=== PATIENT | female | born 1975 | race Caucasian/White ===

== ENCOUNTER 2021-03-06 13:43 | Emergency (ER) | payer MEDICAID, OTHER | END 2021-03-06 14:31 | disposition left against medical advice (07) | LOC: ER 13:43 | DX: R21 Rash and other nonspecific skin eruption (principal); Z53.21 Procedure and treatment not carried out due to patient leaving prior to being seen by health care provider ==

== ENCOUNTER 2021-10-02 00:34 | Observation (INO) | payer OTHER ==
[~2021-10-02] VITALS: Ht 167.6 cm; Wt 72.1 kg
--- NOTE | 2021-10-02 00:39 | PHYS DOC ---
General Adult EDM: Chief Complaint: SEIZURE HPI: HPI: Patient is a 46 year old female brought in by EMS from home for reported multiple seizures today. Per the patient's significant other, he reportedly witnessed at least 7 seizures, with progressively prolonged postictal states. The patient is postictal for EMS on their arrival. No seizure activity was reported in route, though shortly after arrival, she does manifest evidence of tonic-clonic activity. The patient reportedly has a history of epilepsy. EMS reports that one of her medications is Depakote. The patient significant other is not here, and the number listed for him in the computer is not working, so I am inapplicable to procure any information from him. The patient is altered in mental status, is postictal, and I am unable to obtain any information from her directly either. She is afebrile here. No reported known history of vomiting or falls. Unsure about medication compliance. Review of Systems: Review of Systems: Seizures and postictal state, altered mental status. Otherwise review of systems is unobtainable secondary to patient's clinical condition. Heart Score: C/O Chest Pain: N/A Risk Factors: Risk Factors: DM, Current or recent (<one month) smoker, HTN, HLP, family history of CAD, obesity. Risk Scores: Score 0 - 3: 2.5% MACE over next 6 weeks - Discharge Home Score 4 - 6: 20.3% MACE over next 6 weeks - Admit for Clinical Observation Score 7 - 10: 72.7% MACE over next 6 weeks - Early Invasive Strategies Current Medications: Current Medications Medications (Trade) Dose Ordered Sig/Jeri Start Time Stop Time Status Last Admin Dose Admin Lorazepam (Ativan Inj) 2 mg STK-MED ONCE 10/02/21 00:36 10/02/21 00:37 DC Physical Exam: PE: Constitutional: Well developed, well nourished, no acute distress, non-toxic appearance. [] HENT: Normocephalic, atraumatic, oropharynx is patent and clear, mucous membranes are moist. Small tongue wound, with no brisk or active bleeding. Very poor dentition. Multiple broken teeth. TMs are clear bilaterally. Nares are patent. Eyes: PERRL, no scleral icterus, conjunctive are noninjected, no matting Neck: Trachea is midline. No obvious deformity, no palpable step-offs. No apparent elicited tenderness. No meningismus Cardiovascular: Tachycardic, regular, +2 radial and +2 posterior tibial pulses bilaterally. Lungs & Thorax: Equal chest rise, lungs are clear to auscultation bilaterall, respirations are nonlabored and spontaneous. Lungs are clear without rales, rhonchi or wheezes. Abdomen: Abdomen is soft, nondistended, no fluid wave or obvious ascites. No apparent tenderness. Normal bowel sounds were noted Skin: Warm, dry, no erythema, no rash. [] Back: No obvious back deformity, no obvious palpable tenderness Extremities: No limb deformity, no obvious limb tenderness. No peripheral edema. Pelvis is stable. Neurologic: She is sleeping, she is not awake or alert, gag reflex is intact, she does localize to pain. She is unable to follow commands. No verbal response. She does not open her eyes to voice. She mumbles minimally. She does makes incomprehensible sounds, no meaningful verbal response. She does appear to move all 4 extremities equally. She did have an episode of witnessed tonic activity, consistent with generalized seizure. Psychologic: She is drowsy and postictal EKG: EKG: EKG is interpreted at 0255 Rhythm is sinus Rate is 81 bpm [place] is normal No STEMI Radiology/Procedures: Radiology/Procedures: IMAGING REPORT Signed PATIENT: FILIBERTO MALDONADO ACCOUNT: [id number] : 1975 LOCATION: ER AGE: 46 SEX: F EXAM STATUS: REG ER ORD. PHYSICIAN: TORIE SANTANA DO REASON: status epilepticus PROCEDURE: CT HEAD WO CONTRAST CT head without contrast PQRS statement: CT scans at this facility use dose reduction including either automated exposure control, iterative reconstructions, and /or weight based radiation dosing via mA and kV modification when appropriate to reduce radiation dose to as low as reasonably achievable. HISTORY: Status epilepticus. Seizure. FINDINGS: There is a 1 cm hypoattenuating lesion of the right basal ganglia involving the posterior insular ribbon and a portion of the lentiform nucleus on image 14. No mass effect. No intracranial hemorrhage. No hydrocephalus. Orbits, mastoids and bones are unremarkable. IMPRESSION: 1 cm hypoattenuating lesion at the right basal ganglia as described above. This could represent a small age-indeterminate ischemic infarct. Given the small round focal nature, a mass lesion is not excluded. This could be further assessed with MR imaging. Electronically signed by: Tegan Alvarenga MD (10/02/2021 2:09 AM) [facility] [place] DICTATED and SIGNED BY: TEGAN ALVARENGA MD DATE: 10/02/21 [id number] 0 Course & Med Decision Making: Course & Med Decision Making The patient is given IV fluids. She did receive intramuscular Ativan for 1 episode of seizure, and then she had one episode of agitation when she went to have her head CT done. A total of 2 mg of IM Ativan were given. She has not manifested further seizure activity. She is given IV fluids, as well as IV Keppra. She is still postictal, she is protecting her airway, her vital signs are very stable. She appears to be sleeping, she does localize to pain, she freddy uses, moans and rolls over in swats the staff away whenever they come into her room. I did assist the nursing staff and placing a peripheral IV in her right upper extremity. Blood cultures are ordered. She has a normal lactic acid, marked leukocytosis, but no fever. I suspect leukocytosis is from stress reaction from repeated seizure activity. The patient will be admitted to the hospital for further evaluation and treatment. I attempted to call her multiple times, and the number is nonworking. There was no phone call made to our ER to inquire about her. I do not have another working number for her spouse. The patient will be accepted by Dr. Ochoa. Neurology will be consulted. Tone Disclaimer: Tone Disclaimer: This electronic medical record was generated, in whole or in part, using a voice recognition dictation system. Departure Departure Impression: Primary Impression: Status epilepticus Additional Impression: Postictal state Disposition: ADMITTED INPATIENT Admitting Physician: AG (Dr. Ochoa) Condition: GUARDED Referrals: NO PCP (PCP) TORIE SANTANA DO Oct 02, 2021 00:39
[2021-10-02] MEDS ORDERED: levETIRAcetam 1,000 MG in IV DEXTROSE 5% 100ML 100 ML IV ONE (00:45)
[2021-10-02] MEDS ORDERED: IV NORMAL SALINE 1000ML BAG 1,000 ML IV ONE (00:45)
--- NOTE | 2021-10-02 02:12 | RAD ---
CT head without contrast PQRS statement: CT scans at this facility use dose reduction including either automated exposure cont rol, iterative reconstructions, and /or weight based radiation dosing via mA and kV modification when appropriate to reduce radiation dose to as low as reasonably achievable. HISTORY: Status epilepticus. Seizure. FINDINGS: There is a 1 cm hypoattenuating lesion of the right basal ganglia involving the posterior i nsular ribbon and a portion of the lentiform nucleus on image 14. No mass effect. No intracranial hem orrhage. No hydrocephalus. Orbits, mastoids and bones are unremarkable. IMPRESSION: 1 cm hypoattenuating lesion at the right basal ganglia as described above. This could rep resent a small age-indeterminate ischemic infarct. Given the small round focal nature, a mass lesion is not excluded. This could be further assessed with MR imaging. Electronically signed by: Shukri Alvarenga MD (10/02/2021 2:09 AM) [facility]
[2021-10-02 02:39] LABS: BASO # 0.1 x10^3/uL (0.0-0.2); BASO % 0 % (0-3); EOS % 0 % (0-3); HEMATOCRIT 41.3 % (36.0-47.0); HEMOGLOBIN 13.4 g/dL (12.0-15.5); LYMPH # 0.6 x10^3/uL (1.0-4.8); LYMPH % 3 % (24-48); MEAN CORPUSCULAR HEMOGLOBIN 28 pg (25-35); MEAN CORPUSCULAR HGB CONC 32 g/dL (31-37); MEAN CORPUSCULAR VOLUME 88 fL (79-100); MONO # 1.3 x10^3/uL (0.0-1.1); MONO % 6 % (0-9); NEUT % 91 % (31-73); PLATELET COUNT 328 x10^3/uL (140-400); RED BLOOD COUNT 4.71 x10^6/uL (3.50-5.40); RED CELL DISTRIBUTION WIDTH 14.1 % (11.5-14.5)
[2021-10-02 02:48] LABS: ANION GAP 8 (6-14); BLOOD UREA NITROGEN 13 mg/dL (7-20); BUN/CREATININE RATIO 14 (6-20); CARBON DIOXIDE 28 mmol/L (21-32); CHLORIDE 105 mmol/L (98-107); CREATININE 0.9 mg/dL (0.6-1.0); GLUCOSE 82 mg/dL (70-99); POTASSIUM 4.4 mmol/L (3.5-5.1); SODIUM 141 mmol/L (136-145)
[2021-10-02 02:49] LABS: PREG TEST PT QUAL NEGATIVE (NEG)
[2021-10-02 02:55] LABS: ALBUMIN 3.7 g/dL (3.4-5.0); ALBUMIN/GLOBULIN RATIO 0.8 (1.0-1.7); ALK PHOS 83 U/L (46-116); ALT (SGPT) 24 U/L (14-59); AST (SGOT) 18 U/L (15-37); CREATINE KINASE 141 U/L (26-192); MAGNESIUM 2.5 mg/dL (1.8-2.4); TOTAL BILIRUBIN 0.2 mg/dL (0.2-1.0); TOTAL PROTEIN 8.2 g/dL (6.4-8.2)
[2021-10-02 03:01] LABS: % LYMPHS 6 % (24-48); % MONOS 5 % (0-10); % SEGS 89 % (35-66); PLT ESTIMATE ADEQUATE (ADEQUATE); TOXIC GRANULATION SLIGHT; TOXIC VACUOLATION SLIGHT
[2021-10-02 03:32] LABS: BILIRUBIN,URINE NEGATIVE (NEG); CLARITY,URINE CLEAR; COLOR,URINE YELLOW; NITRITE,URINE NEGATIVE (NEG); PROTEIN,URINE 30 mg/dL (NEG-TRACE)
[2021-10-02 03:37] LABS: BARBITURATES NEG (NEG); BENZODIAZEPINES NEG (NEG); CANNABINOIDS NEG (NEG); COCAINE NEG (NEG); METHADONE NEG (NEG); OPIATES NEG (NEG); PHENCYCLIDINE NEG (NEG)
[2021-10-02 03:39] LABS: AMPHETAMINE/METHAMPHETAMINE POS (NEG)
[2021-10-02 03:44] LABS: AMORPHOUS SEDIMENT,UR PRESENT /HPF; BACTERIA,URINE 0 /HPF (0-FEW); RBC,URINE 0 /HPF (0-2); WBC,URINE RARE /HPF (0-4)
[2021-10-02] MEDS: IV DEXTROSE 5 %-0.45 % NACL 1,000 ML IV SCH ×2 (04:24→10:30)
[2021-10-02] MEDS ORDERED: ACETAMINOPHEN 325 MG TABLET. PO PRN (08:30)
[2021-10-02] MEDS ORDERED: DOCUSATE SODIUM 100 MG CAPSULE. PO PRN (08:30)
[2021-10-02] MEDS ORDERED: ZOLPIDEM 5 MG TABLET. PO PRN (08:30)
[2021-10-02] MEDS ORDERED: LORazepam 0.5 MG TABLET PO PRN (08:30)
[2021-10-02] MEDS ORDERED: DEXTROSE 50% 25 GM / 50ML DISP.SYRIN. IV PRN (08:30)
[2021-10-02] MEDS ORDERED: ONDANSETRON PF 4 MG/2 ML VIAL. IVP PRN (08:30)
[2021-10-02] MEDS ORDERED: SENNOSIDES 8.6 MG TABLET PO PRN (08:30)
[2021-10-02] MEDS ORDERED: PROCHLORPERAZINE 10 MG/2 ML VIAL. IV PRN (08:30)
--- NOTE | 2021-10-02 08:31 | PDOC1 ---
History and Physical Date of Service: DOS: DATE: 10/02/21 TIME: 08:25 Chief Complaint: Chief Complain: Seizures History of Present Illness: HPI: 46 year old female brought in by EMS from home for reported multiple seizures today. Per the patient's significant other, he reportedly witnessed at least 7 seizures, with progressively prolonged postictal states. The patient is postictal for EMS on their arrival. No seizure activity was reported in route, though shortly after arrival, she does manifest evidence of tonic-clonic activity. The patient reportedly has a history of epilepsy. EMS reports that one of her medications is Depakote. The patient significant other is not here, and the number listed for him in the computer is not working, so I am inapplicable to procure any information from him. The patient is altered in mental status, is postictal, and I am unable to obtain any information from her directly either. She is afebrile here. No reported known history of vomiting or falls. Unsure about medication compliance. Past Medical/Surgical History: PMH/PSH: Unable to obtain due to altered mental status Allergies: Allergies: Coded Allergies: Unable to Assess (Unverified , 10/02/21) Family History: Family History: Unable to obtain due to altered mental status Social History: Social History: Unable to obtain due to altered mental status. Positive for methamphetamines on urine drug screen. Current Medications: Current Medications Current Medications Lorazepam (Ativan Inj) 2 mg STK-MED ONCE .ROUTE ; Start 10/02/21 at 00:36; Stop 10/02/21 at 00:37; Status DC Lorazepam (Ativan Inj) 1 mg 1X ONCE IM Last administered on 10/02/21at 00:45; Start 10/02/21 at 00:45; Stop 10/02/21 at 00:46; Status DC Sodium Chloride 1,000 ml @ 1,000 mls/hr 1X ONCE IV Last administered on 10/02/21at 02:36; Start 10/02/21 at 00:45; Stop 10/02/21 at 01:44; Status DC Levetiracetam 1000 mg/Dextrose 110 ml @ 440 mls/hr 1X ONCE IV Last administered on 10/02/21at 02:37; Start 10/02/21 at 00:45; Stop 10/02/21 at 00:59; Status DC Lorazepam (Ativan Inj) 1 mg 1X ONCE IM Last administered on 10/02/21at 00:45; Start 10/02/21 at 01:45; Stop 10/02/21 at 01:46; Status DC Dextrose/Sodium Chloride 1,000 ml @ 100 mls/hr Q10H IV Last administered on 10/02/21at 04:24; Start 10/02/21 at 04:15 Lorazepam (Ativan Inj) 1 mg 1X PRN IVP seizure activity; Start 10/02/21 at 04:15 Lorazepam (Ativan Inj) 1 mg 1X ONCE IVP Last administered on 10/02/21at 06:34; Start 10/02/21 at 06:30; Stop 10/02/21 at 06:33; Status DC Levetiracetam 500 mg/Dextrose 105 ml @ 420 mls/hr Q12HR IV ; Start 10/02/21 at 09:00 ROS: Review of Systems Review of System Unable to obtain due to altered mental status and seizures Physical Exam: Vital Signs: Vital Signs Date Time Temp Pulse Resp B/P (MAP) Pulse Ox O2 Delivery O2 Flow Rate FiO2 10/02/21 06:16 98.2 96 16 109/82 (91) 99 Room Air 98.2 Physcial Exam: General: Well developed, well nourished, no acute distress, well appearing HEENT: Pupils equally round and reactive to light, EOMI, no discharge, normal conjunctiva. Small tongue wound, with no brisk or active bleeding. Very poor dentition. Multiple broken teeth. TMs are clear bilaterally. Nares are patent. Neck: Supple, no nuchal rigidity, no JVD, trachea midline, no tenderness Cardiac: RRR, no murmurs, no gallops, no rubs Chest/Lungs: CTAB, no wheeze, no rhonchi, no crackles Abdomen: soft, non-distended, no guarding, no peritoneal signs, non-tender Back: No tenderness Extremities: no edema, pulses intact, non-tender,capillary refill <3 sec bilateral upper and lower extremities, Neuro: She is unable to follow commands. No verbal response. She does not open her eyes to voice. She mumbles minimally. She does makes incomprehensible sounds, no meaningful verbal response. She does appear to move all 4 extremities equally. She did have an episode of witnessed tonic activity, consistent with generalized seizure. Labs: Labs: Laboratory Tests Test 10/02/21 02:25 10/02/21 03:24 White Blood Count 21.0 x10^3/uL (4.0-11.0) Red Blood Count 4.71 x10^6/uL (3.50-5.40) Hemoglobin 13.4 g/dL (12.0-15.5) Hematocrit 41.3 % (36.0-47.0) Mean Corpuscular Volume 88 fL (79-100) Mean Corpuscular Hemoglobin 28 pg (25-35) Mean Corpuscular Hemoglobin Concent 32 g/dL (31-37) Red Cell Distribution Width 14.1 % (11.5-14.5) Platelet Count 328 x10^3/uL (140-400) Neutrophils (%) (Auto) 91 % (31-73) Lymphocytes (%) (Auto) 3 % (24-48) Monocytes (%) (Auto) 6 % (0-9) Eosinophils (%) (Auto) 0 % (0-3) Basophils (%) (Auto) 0 % (0-3) Neutrophils # (Auto) 19.0 x10^3/uL (1.8-7.7) Lymphocytes # (Auto) 0.6 x10^3/uL (1.0-4.8) Monocytes # (Auto) 1.3 x10^3/uL (0.0-1.1) Eosinophils # (Auto) 0.0 x10^3/uL (0.0-0.7) Basophils # (Auto) 0.1 x10^3/uL (0.0-0.2) Segmented Neutrophils % 89 % (35-66) Lymphocytes % 6 % (24-48) Monocytes % 5 % (0-10) Toxic Granulation Slight Toxic Vacuolation Slight Platelet Estimate Adequate (ADEQUATE) Sodium Level 141 mmol/L (136-145) Potassium Level 4.4 mmol/L (3.5-5.1) Chloride Level 105 mmol/L (98-107) Carbon Dioxide Level 28 mmol/L (21-32) Anion Gap 8 (6-14) Blood Urea Nitrogen 13 mg/dL (7-20) Creatinine 0.9 mg/dL (0.6-1.0) Estimated GFR (Cockcroft-Gault) 68.0 BUN/Creatinine Ratio 14 (6-20) Glucose Level 82 mg/dL (70-99) Lactic Acid Level 1.6 mmol/L (0.4-2.0) Calcium Level 9.0 mg/dL (8.5-10.1) Magnesium Level 2.5 mg/dL (1.8-2.4) Total Bilirubin 0.2 mg/dL (0.2-1.0) Aspartate Amino Transf (AST/SGOT) 18 U/L (15-37) Alanine Aminotransferase (ALT/SGPT) 24 U/L (14-59) Alkaline Phosphatase 83 U/L (46-116) Creatine Kinase 141 U/L (26-192) Total Protein 8.2 g/dL (6.4-8.2) Albumin 3.7 g/dL (3.4-5.0) Albumin/Globulin Ratio 0.8 (1.0-1.7) Serum Test, Qualitative Negative (NEG) Valproic Acid (Depakene) Level mcg/mL (50-100) Valproic Acid Last Dose Date Unk Valproic Acid Last Dose Time Unk Ethyl Alcohol Level < 10 mg/dL (0-10) Urine Collection Type U cath Urine Color Yellow Urine Clarity Clear Urine pH 6.0 (<5.0-8.0) Urine Specific [place] 1.025 (1.000-1.030) Urine Protein 30 mg/dL (NEG-TRACE) Urine Glucose (UA) Negative mg/dL (NEG) Urine Ketones (Stick) Negative mg/dL (NEG) Urine Blood Negative (NEG) Urine Nitrite Negative (NEG) Urine Bilirubin Negative (NEG) Urine Urobilinogen Dipstick 1.0 mg/dL (0.2 mg/dL) Urine Leukocyte Esterase Negative (NEG) Urine RBC 0 /HPF (0-2) Urine WBC Rare /HPF (0-4) Urine Squamous Epithelial Cells Few /LPF Urine Amorphous Sediment Present /HPF Urine Bacteria 0 /HPF (0-FEW) Urine Mucus Mod /LPF Urine Opiates Screen Neg (NEG) Urine Methadone Screen Neg (NEG) Urine Barbiturates Neg (NEG) Urine Phencyclidine Screen Neg (NEG) Urine Amphetamine/Methamphetamine Pos (NEG) Urine Benzodiazepines Screen Neg (NEG) Urine Cocaine Screen Neg (NEG) Urine Cannabinoids Screen Neg (NEG) Urine Ethyl Alcohol Neg (NEG) Laboratory Tests Test 10/02/21 02:25 10/02/21 03:24 White Blood Count 21.0 x10^3/uL (4.0-11.0) Red Blood Count 4.71 x10^6/uL (3.50-5.40) Hemoglobin 13.4 g/dL (12.0-15.5) Hematocrit 41.3 % (36.0-47.0) Mean Corpuscular Volume 88 fL (79-100) Mean Corpuscular Hemoglobin 28 pg (25-35) Mean Corpuscular Hemoglobin Concent 32 g/dL (31-37) Red Cell Distribution Width 14.1 % (11.5-14.5) Platelet Count 328 x10^3/uL (140-400) Neutrophils (%) (Auto) 91 % (31-73) Lymphocytes (%) (Auto) 3 % (24-48) Monocytes (%) (Auto) 6 % (0-9) Eosinophils (%) (Auto) 0 % (0-3) Basophils (%) (Auto) 0 % (0-3) Neutrophils # (Auto) 19.0 x10^3/uL (1.8-7.7) Lymphocytes # (Auto) 0.6 x10^3/uL (1.0-4.8) Monocytes # (Auto) 1.3 x10^3/uL (0.0-1.1) Eosinophils # (Auto) 0.0 x10^3/uL (0.0-0.7) Basophils # (Auto) 0.1 x10^3/uL (0.0-0.2) Segmented Neutrophils % 89 % (35-66) Lymphocytes % 6 % (24-48) Monocytes % 5 % (0-10) Toxic Granulation Slight Toxic Vacuolation Slight Platelet Estimate Adequate (ADEQUATE) Sodium Level 141 mmol/L (136-145) Potassium Level 4.4 mmol/L (3.5-5.1) Chloride Level 105 mmol/L (98-107) Carbon Dioxide Level 28 mmol/L (21-32) Anion Gap 8 (6-14) Blood Urea Nitrogen 13 mg/dL (7-20) Creatinine 0.9 mg/dL (0.6-1.0) Estimated GFR (Cockcroft-Gault) 68.0 BUN/Creatinine Ratio 14 (6-20) Glucose Level 82 mg/dL (70-99) Lactic Acid Level 1.6 mmol/L (0.4-2.0) Calcium Level 9.0 mg/dL (8.5-10.1) Magnesium Level 2.5 mg/dL (1.8-2.4) Total Bilirubin 0.2 mg/dL (0.2-1.0) Aspartate Amino Transf (AST/SGOT) 18 U/L (15-37) Alanine Aminotransferase (ALT/SGPT) 24 U/L (14-59) Alkaline Phosphatase 83 U/L (46-116) Creatine Kinase 141 U/L (26-192) Total Protein 8.2 g/dL (6.4-8.2) Albumin 3.7 g/dL (3.4-5.0) Albumin/Globulin Ratio 0.8 (1.0-1.7) Serum Test, Qualitative Negative (NEG) Valproic Acid (Depakene) Level mcg/mL (50-100) Valproic Acid Last Dose Date Unk Valproic Acid Last Dose Time Unk Ethyl Alcohol Level < 10 mg/dL (0-10) Urine Collection Type U cath Urine Color Yellow Urine Clarity Clear Urine pH 6.0 (<5.0-8.0) Urine Specific [place] 1.025 (1.000-1.030) Urine Protein 30 mg/dL (NEG-TRACE) Urine Glucose (UA) Negative mg/dL (NEG) Urine Ketones (Stick) Negative mg/dL (NEG) Urine Blood Negative (NEG) Urine Nitrite Negative (NEG) Urine Bilirubin Negative (NEG) Urine Urobilinogen Dipstick 1.0 mg/dL (0.2 mg/dL) Urine Leukocyte Esterase Negative (NEG) Urine RBC 0 /HPF (0-2) Urine WBC Rare /HPF (0-4) Urine Squamous Epithelial Cells Few /LPF Urine Amorphous Sediment Present /HPF Urine Bacteria 0 /HPF (0-FEW) Urine Mucus Mod /LPF Urine Opiates Screen Neg (NEG) Urine Methadone Screen Neg (NEG) Urine Barbiturates Neg (NEG) Urine Phencyclidine Screen Neg (NEG) Urine Amphetamine/Methamphetamine Pos (NEG) Urine Benzodiazepines Screen Neg (NEG) Urine Cocaine Screen Neg (NEG) Urine Cannabinoids Screen Neg (NEG) Urine Ethyl Alcohol Neg (NEG) Images: Images PROCEDURE: CT HEAD WO CONTRAST CT head without contrast PQRS statement: CT scans at this facility use dose reduction including either automated exposure control, iterative reconstructions, and /or weight based radiation dosing via mA and kV modification when appropriate to reduce radiation dose to as low as reasonably achievable. HISTORY: Status epilepticus. Seizure. FINDINGS: There is a 1 cm hypoattenuating lesion of the right basal ganglia involving the posterior insular ribbon and a portion of the lentiform nucleus on image 14. No mass effect. No intracranial hemorrhage. No hydrocephalus. Orbits, mastoids and bones are unremarkable. IMPRESSION: 1 cm hypoattenuating lesion at the right basal ganglia as described above. This could represent a small age-indeterminate ischemic infarct. Given the small round focal nature, a mass lesion is not excluded. This could be further assessed with MR imaging. Assessment/Plan Assessment/Plan Status epilepticus Acute metabolic encephalopathy Methamphetamine positivity 1 cm infarct at the right basal ganglia Admit to hospitalist service for further management Seizure precautions Neurology consult Ativan as needed for seizures lasting greater than 3 minutes PAT evaluation when patient is awake for methamphetamine use SCD for DVT prophylaxis NPO and postictal. CODE STATUS full Discussed with RN and SW Disposition inpatient management as above DPOA: Justifications for Admission Other Justification GALILEA BORGES MD Oct 02, 2021 08:31
[2021-10-02] MEDS: IV NORMAL SALINE 1000ML BAG 1,000 ML IV SCH ×2 (09:00→19:00)
[2021-10-02] MEDS: levETIRAcetam 500 MG in IV DEXTROSE 5% 100ML 100 ML IV SCH (09:57)
--- NOTE | 2021-10-02 11:01 | PDOC2 ---
NEUROLOGY CONSULT Date of Service DOS: DATE: 10/02/21 TIME: 10:55 Reason for Consult Reason for Consult: Status epilepticus Referring Physician Referring Physician: Dr. Morelos Source Source: Chart review History of Present Illness History of Present Illness The patient is a 46-year-old female brought by emergency medical services from home with multiple seizures. Significant other witnessed 7 seizures with prolonged postictal state. She did have a seizure in the emergency room and received several doses of Ativan. She is reportedly taking Depakote. In the emergency department she was given 1 g of levetiracetam. She has had no further seizures. She remains obtunded. There is no one to give further history. Past Medical History CENTRAL NERVOUS SYSTEM: Seizure Past Surgical History Past Surgical History: No pertinent history Family History Family History: No pertinent hx (Unobtainable) Social History Social History Unobtainable Current Medications Current Medications Current Medications Lorazepam (Ativan Inj) 2 mg STK-MED ONCE .ROUTE ; Start 10/02/21 at 00:36; Stop 10/02/21 at 00:37; Status DC Lorazepam (Ativan Inj) 1 mg 1X ONCE IM Last administered on 10/02/21at 00:45; Start 10/02/21 at 00:45; Stop 10/02/21 at 00:46; Status DC Sodium Chloride 1,000 ml @ 1,000 mls/hr 1X ONCE IV Last administered on 10/02/21at 02:36; Start 10/02/21 at 00:45; Stop 10/02/21 at 01:44; Status DC Levetiracetam 1000 mg/Dextrose 110 ml @ 440 mls/hr 1X ONCE IV Last administered on 10/02/21at 02:37; Start 10/02/21 at 00:45; Stop 10/02/21 at 00:59; Status DC Lorazepam (Ativan Inj) 1 mg 1X ONCE IM Last administered on 10/02/21at 00:45; Start 10/02/21 at 01:45; Stop 10/02/21 at 01:46; Status DC Dextrose/Sodium Chloride 1,000 ml @ 100 mls/hr Q10H IV Last administered on 10/02/21at 04:24; Start 10/02/21 at 04:15 Lorazepam (Ativan Inj) 1 mg 1X PRN IVP seizure activity; Start 10/02/21 at 04:15 Lorazepam (Ativan Inj) 1 mg 1X ONCE IVP Last administered on 10/02/21at 06:34; Start 10/02/21 at 06:30; Stop 10/02/21 at 06:33; Status DC Levetiracetam 500 mg/Dextrose 105 ml @ 420 mls/hr Q12HR IV Last administered on 10/02/21at 09:57; Start 10/02/21 at 09:00 Sennosides (Senna) 17.2 mg PRN BID PRN PO CONSTIPATION; Start 10/02/21 at 08:30 Docusate Sodium (Colace) 100 mg PRN DAILY PRN PO HARD STOOLS; Start 10/02/21 at 08:30 Ondansetron HCl (Zofran) 4 mg PRN Q6HRS PRN IVP NAUSEA/VOMITING; Start 10/02/21 at 08:30 Dextrose (Dextrose 50%-Water Syringe) 12.5 gm PRN Q15MIN PRN IV SEE COMMENTS; Start 10/02/21 at 08:30 Sodium Chloride 1,000 ml @ 100 mls/hr Q10H IV ; Start 10/02/21 at 09:00 Acetaminophen (Tylenol) 650 mg PRN Q4HRS PRN PO TEMP OVER 100.4F OR MILD PAIN; Start 10/02/21 at 08:30 Lorazepam (Ativan) 0.5 mg PRN Q6HRS PRN PO ANXIETY / AGITATION; Start 10/02/21 at 08:30 Lorazepam (Ativan Inj) 0.25 mg PRN Q4HRS PRN IV ANXIETY / AGITATION Last administered on 10/02/21at 10:27; Start 10/02/21 at 08:30 Prochlorperazine Edisylate (Compazine) 10 mg PRN Q6HRS PRN IV NAUSEA/VOMITING; Start 10/02/21 at 08:30 Zolpidem Tartrate (Ambien) 2.5 mg PRN QHS PRN PO INSOMNIA; Start 10/02/21 at 08:30 Allergies Allergies: Coded Allergies: Unable to Assess (Unverified , 10/02/21) ROS Review of System Unobtainable Physical Exam Physical Examination General: Well-developed, well-nourished, white female, in no acute distress HEENT: Normocephalic andatraumatic. Temporal arteriespulsatile and nontender. Neck: Supple without bruit, no meningismus Musculoskeletal: Stability:see neurologic. Gait exam:see neurologic. Tone:see neurologic.Strength:see neurologic. Neurological: Mental Status:orientation, memory, attention span/concentration, language, fund of knowledge: Asleep in the emergency department, arouses to loud voice but does not follow commands. Cranial Nerves:Pupils equal and reactive to light, extraocular movements areintact. There is no facial asymmetry. Vestibulo-ocular reflex is intact. All other cranial related problems are negative except as mentioned before.Reflexes:2+ and symmetric with flexor plantar responses. Motor:Moves all extremities to minimal stimulation. Coordination and gait:Not cooperative. Sensory:Withdraws each extremity to pinprick sensation Vitals VITALS Vital Signs Date Time Temp Pulse Resp B/P (MAP) Pulse Ox O2 Delivery O2 Flow Rate FiO2 10/02/21 06:16 98.2 96 16 109/82 (91) 99 Room Air 98.2 Labs Labs Laboratory Tests Test 10/02/21 02:25 10/02/21 03:24 White Blood Count 21.0 x10^3/uL (4.0-11.0) Red Blood Count 4.71 x10^6/uL (3.50-5.40) Hemoglobin 13.4 g/dL (12.0-15.5) Hematocrit 41.3 % (36.0-47.0) Mean Corpuscular Volume 88 fL (79-100) Mean Corpuscular Hemoglobin 28 pg (25-35) Mean Corpuscular Hemoglobin Concent 32 g/dL (31-37) Red Cell Distribution Width 14.1 % (11.5-14.5) Platelet Count 328 x10^3/uL (140-400) Neutrophils (%) (Auto) 91 % (31-73) Lymphocytes (%) (Auto) 3 % (24-48) Monocytes (%) (Auto) 6 % (0-9) Eosinophils (%) (Auto) 0 % (0-3) Basophils (%) (Auto) 0 % (0-3) Neutrophils # (Auto) 19.0 x10^3/uL (1.8-7.7) Lymphocytes # (Auto) 0.6 x10^3/uL (1.0-4.8) Monocytes # (Auto) 1.3 x10^3/uL (0.0-1.1) Eosinophils # (Auto) 0.0 x10^3/uL (0.0-0.7) Basophils # (Auto) 0.1 x10^3/uL (0.0-0.2) Segmented Neutrophils % 89 % (35-66) Lymphocytes % 6 % (24-48) Monocytes % 5 % (0-10) Toxic Granulation Slight Toxic Vacuolation Slight Platelet Estimate Adequate (ADEQUATE) Sodium Level 141 mmol/L (136-145) Potassium Level 4.4 mmol/L (3.5-5.1) Chloride Level 105 mmol/L (98-107) Carbon Dioxide Level 28 mmol/L (21-32) Anion Gap 8 (6-14) Blood Urea Nitrogen 13 mg/dL (7-20) Creatinine 0.9 mg/dL (0.6-1.0) Estimated GFR (Cockcroft-Gault) 68.0 BUN/Creatinine Ratio 14 (6-20) Glucose Level 82 mg/dL (70-99) Lactic Acid Level 1.6 mmol/L (0.4-2.0) Calcium Level 9.0 mg/dL (8.5-10.1) Magnesium Level 2.5 mg/dL (1.8-2.4) Total Bilirubin 0.2 mg/dL (0.2-1.0) Aspartate Amino Transf (AST/SGOT) 18 U/L (15-37) Alanine Aminotransferase (ALT/SGPT) 24 U/L (14-59) Alkaline Phosphatase 83 U/L (46-116) Creatine Kinase 141 U/L (26-192) Total Protein 8.2 g/dL (6.4-8.2) Albumin 3.7 g/dL (3.4-5.0) Albumin/Globulin Ratio 0.8 (1.0-1.7) Thyroid Stimulating Hormone (TSH) 2.100 uIU/mL (0.358-3.74) Serum Test, Qualitative Negative (NEG) Valproic Acid (Depakene) Level mcg/mL (50-100) Valproic Acid Last Dose Date Unk Valproic Acid Last Dose Time Unk Ethyl Alcohol Level < 10 mg/dL (0-10) Urine Collection Type U cath Urine Color Yellow Urine Clarity Clear Urine pH 6.0 (<5.0-8.0) Urine Specific [place] 1.025 (1.000-1.030) Urine Protein 30 mg/dL (NEG-TRACE) Urine Glucose (UA) Negative mg/dL (NEG) Urine Ketones (Stick) Negative mg/dL (NEG) Urine Blood Negative (NEG) Urine Nitrite Negative (NEG) Urine Bilirubin Negative (NEG) Urine Urobilinogen Dipstick 1.0 mg/dL (0.2 mg/dL) Urine Leukocyte Esterase Negative (NEG) Urine RBC 0 /HPF (0-2) Urine WBC Rare /HPF (0-4) Urine Squamous Epithelial Cells Few /LPF Urine Amorphous Sediment Present /HPF Urine Bacteria 0 /HPF (0-FEW) Urine Mucus Mod /LPF Urine Opiates Screen Neg (NEG) Urine Methadone Screen Neg (NEG) Urine Barbiturates Neg (NEG) Urine Phencyclidine Screen Neg (NEG) Urine Amphetamine/Methamphetamine Pos (NEG) Urine Benzodiazepines Screen Neg (NEG) Urine Cocaine Screen Neg (NEG) Urine Cannabinoids Screen Neg (NEG) Urine Ethyl Alcohol Neg (NEG) Laboratory Tests Test 10/02/21 02:25 10/02/21 03:24 White Blood Count 21.0 x10^3/uL (4.0-11.0) Red Blood Count 4.71 x10^6/uL (3.50-5.40) Hemoglobin 13.4 g/dL (12.0-15.5) Hematocrit 41.3 % (36.0-47.0) Mean Corpuscular Volume 88 fL (79-100) Mean Corpuscular Hemoglobin 28 pg (25-35) Mean Corpuscular Hemoglobin Concent 32 g/dL (31-37) Red Cell Distribution Width 14.1 % (11.5-14.5) Platelet Count 328 x10^3/uL (140-400) Neutrophils (%) (Auto) 91 % (31-73) Lymphocytes (%) (Auto) 3 % (24-48) Monocytes (%) (Auto) 6 % (0-9) Eosinophils (%) (Auto) 0 % (0-3) Basophils (%) (Auto) 0 % (0-3) Neutrophils # (Auto) 19.0 x10^3/uL (1.8-7.7) Lymphocytes # (Auto) 0.6 x10^3/uL (1.0-4.8) Monocytes # (Auto) 1.3 x10^3/uL (0.0-1.1) Eosinophils # (Auto) 0.0 x10^3/uL (0.0-0.7) Basophils # (Auto) 0.1 x10^3/uL (0.0-0.2) Segmented Neutrophils % 89 % (35-66) Lymphocytes % 6 % (24-48) Monocytes % 5 % (0-10) Toxic Granulation Slight Toxic Vacuolation Slight Platelet Estimate Adequate (ADEQUATE) Sodium Level 141 mmol/L (136-145) Potassium Level 4.4 mmol/L (3.5-5.1) Chloride Level 105 mmol/L (98-107) Carbon Dioxide Level 28 mmol/L (21-32) Anion Gap 8 (6-14) Blood Urea Nitrogen 13 mg/dL (7-20) Creatinine 0.9 mg/dL (0.6-1.0) Estimated GFR (Cockcroft-Gault) 68.0 BUN/Creatinine Ratio 14 (6-20) Glucose Level 82 mg/dL (70-99) Lactic Acid Level 1.6 mmol/L (0.4-2.0) Calcium Level 9.0 mg/dL (8.5-10.1) Magnesium Level 2.5 mg/dL (1.8-2.4) Total Bilirubin 0.2 mg/dL (0.2-1.0) Aspartate Amino Transf (AST/SGOT) 18 U/L (15-37) Alanine Aminotransferase (ALT/SGPT) 24 U/L (14-59) Alkaline Phosphatase 83 U/L (46-116) Creatine Kinase 141 U/L (26-192) Total Protein 8.2 g/dL (6.4-8.2) Albumin 3.7 g/dL (3.4-5.0) Albumin/Globulin Ratio 0.8 (1.0-1.7) Thyroid Stimulating Hormone (TSH) 2.100 uIU/mL (0.358-3.74) Serum Test, Qualitative Negative (NEG) Valproic Acid (Depakene) Level mcg/mL (50-100) Valproic Acid Last Dose Date Unk Valproic Acid Last Dose Time Unk Ethyl Alcohol Level < 10 mg/dL (0-10) Urine Collection Type U cath Urine Color Yellow Urine Clarity Clear Urine pH 6.0 (<5.0-8.0) Urine Specific [place] 1.025 (1.000-1.030) Urine Protein 30 mg/dL (NEG-TRACE) Urine Glucose (UA) Negative mg/dL (NEG) Urine Ketones (Stick) Negative mg/dL (NEG) Urine Blood Negative (NEG) Urine Nitrite Negative (NEG) Urine Bilirubin Negative (NEG) Urine Urobilinogen Dipstick 1.0 mg/dL (0.2 mg/dL) Urine Leukocyte Esterase Negative (NEG) Urine RBC 0 /HPF (0-2) Urine WBC Rare /HPF (0-4) Urine Squamous Epithelial Cells Few /LPF Urine Amorphous Sediment Present /HPF Urine Bacteria 0 /HPF (0-FEW) Urine Mucus Mod /LPF Urine Opiates Screen Neg (NEG) Urine Methadone Screen Neg (NEG) Urine Barbiturates Neg (NEG) Urine Phencyclidine Screen Neg (NEG) Urine Amphetamine/Methamphetamine Pos (NEG) Urine Benzodiazepines Screen Neg (NEG) Urine Cocaine Screen Neg (NEG) Urine Cannabinoids Screen Neg (NEG) Urine Ethyl Alcohol Neg (NEG) Images Images CT head without contrast PQRS statement: CT scans at this facility use dose reduction including either automated exposure control, iterative reconstructions, and /or weight based radiation dosing via mA and kV modification when appropriate to reduce radiation dose to as low as reasonably achievable. HISTORY: Status epilepticus. Seizure. FINDINGS: There is a 1 cm hypoattenuating lesion of the right basal ganglia involving the posterior insular ribbon and a portion of the lentiform nucleus on image 14. No mass effect. No intracranial hemorrhage. No hydrocephalus. Orbits, mastoids and bones are unremarkable. IMPRESSION: 1 cm hypoattenuating lesion at the right basal ganglia as described above. This could represent a small age-indeterminate ischemic infarct. Given the small round focal nature, a mass lesion is not excluded. This could be further assessed with MR imaging. Assessment/Plan Assessment/Plan Impression: Seizures, apparently has prior history of seizures, note positive methamphetamine in urine drug screen which may have precipitated. She is currently postictal but with a nonfocal examination no evidence of ongoing seizure activity or central nervous system infection Old right basal ganglia infarct Recommendations: Continue levetiracetam for now rather than the valproic acid. I will consider MRI and EEG studies depending on her course. Seizure precautions, using the lorazepam only for seizures lasting more than 3 minutes. Thank you for letting me help with the patient's care. RAMANA STEIN MD Oct 02, 2021 11:00
[2021-10-02 23:40] VITALS: BP 134/78
[2021-10-03] MEDS: IV DEXTROSE 5 %-0.45 % NACL 1,000 ML IV SCH (00:09)
[2021-10-03] MEDS: levETIRAcetam 500 MG in IV DEXTROSE 5% 100ML 100 ML IV SCH ×3 (00:26→21:13)
[2021-10-03 03:02] LABS: BASO # 0.1 x10^3/uL (0.0-0.2); BASO % 1 % (0-3); EOS % 0 % (0-3); HEMATOCRIT 38.4 % (36.0-47.0); HEMOGLOBIN 12.4 g/dL (12.0-15.5); LYMPH # 1.4 x10^3/uL (1.0-4.8); LYMPH % 16 % (24-48); MEAN CORPUSCULAR HEMOGLOBIN 28 pg (25-35); MEAN CORPUSCULAR HGB CONC 32 g/dL (31-37); MEAN CORPUSCULAR VOLUME 87 fL (79-100); MONO # 0.7 x10^3/uL (0.0-1.1); MONO % 8 % (0-9); NEUT % 76 % (31-73); PLATELET COUNT 273 x10^3/uL (140-400); RED CELL DISTRIBUTION WIDTH 13.8 % (11.5-14.5); WHITE BLOOD COUNT 9.2 x10^3/uL (4.0-11.0)
[2021-10-03 03:37] VITALS: BP 120/71
[2021-10-03 03:48] LABS: CALCIUM 8.1 mg/dL (8.5-10.1); CREATININE 0.6 mg/dL (0.6-1.0); GFR 108.6; MAGNESIUM 2.2 mg/dL (1.8-2.4); PHOSPHORUS 3.6 mg/dL (2.6-4.7); POTASSIUM 3.6 mmol/L (3.5-5.1)
[2021-10-03] MEDS: IV NORMAL SALINE 1000ML BAG 1,000 ML IV SCH (04:32)
[2021-10-03 07:00] VITALS: BP 133/77
--- NOTE | 2021-10-03 10:26 | PDOC ---
PROGRESS NOTES Date of Service DATE: 10/03/21 TIME: 10:23 Assessment Problems Medical Problems: (1) Postictal state Status: Acute Seizures, apparently has prior history of seizures, note positive methamphetamine in urine drug screen which may have precipitated. She is currently postictal but with a nonfocal examination no evidence of ongoing seizure activity or central nervous system infection. Review of [facility] chart says that she was identified with psychogenic nonepileptic seizures during her hospitalization in March. They stop lamotrigine and levetiracetam in favor of Depakote, but this apparently was not helping much either. Old right basal ganglia infarct History of posttraumatic stress disorder, stroke, methamphetamine abuse, urinary tract infection, borderline personality disorder, major depressive disorder, anxiety Plan Continue levetiracetam for now rather than the valproic acid. She does not need MRI and EEG studies Seizure precautions, using the lorazepam only for seizures lasting more than 3 minutes. See if she can swallow, advance diet, mobilize with some physical therapy Subjective Feels sore all over her body Objective Vital Signs Date Time Temp Pulse Resp B/P (MAP) Pulse Ox O2 Delivery O2 Flow Rate FiO2 10/03/21 07:00 98.4 76 17 133/77 (95) 99 Room Air 98.4 PHYSICAL EXAM Sleepy, arouses, knows she is in the hospital, does not know the date, follows commands PERRL. EOMI. CN: no focal findings. Muscle tone: normal. Muscle strength: 4/5 DTR: 1+ Plantar reflex: Flexor Gait: not examined in bed. Sensory exam: no abnormal findings. No cerebellar signs elicited. Review of Relevant I have reviewed the following items kesha (where applicable) has been applied. Labs Laboratory Tests Test 10/02/21 02:25 10/02/21 03:24 10/03/21 02:45 10/03/21 03:02 White Blood Count 21.0 x10^3/uL (4.0-11.0) 9.2 x10^3/uL (4.0-11.0) Red Blood Count 4.71 x10^6/uL (3.50-5.40) 4.40 x10^6/uL (3.50-5.40) Hemoglobin 13.4 g/dL (12.0-15.5) 12.4 g/dL (12.0-15.5) Hematocrit 41.3 % (36.0-47.0) 38.4 % (36.0-47.0) Mean Corpuscular Volume 88 fL (79-100) 87 fL (79-100) Mean Corpuscular Hemoglobin 28 pg (25-35) 28 pg (25-35) Mean Corpuscular Hemoglobin Concent 32 g/dL (31-37) 32 g/dL (31-37) Red Cell Distribution Width 14.1 % (11.5-14.5) 13.8 % (11.5-14.5) Platelet Count 328 x10^3/uL (140-400) 273 x10^3/uL (140-400) Neutrophils (%) (Auto) 91 % (31-73) 76 % (31-73) Lymphocytes (%) (Auto) 3 % (24-48) 16 % (24-48) Monocytes (%) (Auto) 6 % (0-9) 8 % (0-9) Eosinophils (%) (Auto) 0 % (0-3) 0 % (0-3) Basophils (%) (Auto) 0 % (0-3) 1 % (0-3) Neutrophils # (Auto) 19.0 x10^3/uL (1.8-7.7) 7.0 x10^3/uL (1.8-7.7) Lymphocytes # (Auto) 0.6 x10^3/uL (1.0-4.8) 1.4 x10^3/uL (1.0-4.8) Monocytes # (Auto) 1.3 x10^3/uL (0.0-1.1) 0.7 x10^3/uL (0.0-1.1) Eosinophils # (Auto) 0.0 x10^3/uL (0.0-0.7) 0.0 x10^3/uL (0.0-0.7) Basophils # (Auto) 0.1 x10^3/uL (0.0-0.2) 0.1 x10^3/uL (0.0-0.2) Segmented Neutrophils % 89 % (35-66) Lymphocytes % 6 % (24-48) Monocytes % 5 % (0-10) Toxic Granulation Slight Toxic Vacuolation Slight Platelet Estimate Adequate (ADEQUATE) Sodium Level 141 mmol/L (136-145) 140 mmol/L (136-145) Potassium Level 4.4 mmol/L (3.5-5.1) 3.6 mmol/L (3.5-5.1) Chloride Level 105 mmol/L (98-107) 105 mmol/L (98-107) Carbon Dioxide Level 28 mmol/L (21-32) 26 mmol/L (21-32) Anion Gap 8 (6-14) 9 (6-14) Blood Urea Nitrogen 13 mg/dL (7-20) 11 mg/dL (7-20) Creatinine 0.9 mg/dL (0.6-1.0) 0.6 mg/dL (0.6-1.0) Estimated GFR (Cockcroft-Gault) 68.0 108.6 BUN/Creatinine Ratio 14 (6-20) Glucose Level 82 mg/dL (70-99) 87 mg/dL (70-99) Lactic Acid Level 1.6 mmol/L (0.4-2.0) Calcium Level 9.0 mg/dL (8.5-10.1) 8.1 mg/dL (8.5-10.1) Magnesium Level 2.5 mg/dL (1.8-2.4) 2.2 mg/dL (1.8-2.4) Total Bilirubin 0.2 mg/dL (0.2-1.0) Aspartate Amino Transf (AST/SGOT) 18 U/L (15-37) Alanine Aminotransferase (ALT/SGPT) 24 U/L (14-59) Alkaline Phosphatase 83 U/L (46-116) Creatine Kinase 141 U/L (26-192) Total Protein 8.2 g/dL (6.4-8.2) Albumin 3.7 g/dL (3.4-5.0) Albumin/Globulin Ratio 0.8 (1.0-1.7) Thyroid Stimulating Hormone (TSH) 2.100 uIU/mL (0.358-3.74) Serum Test, Qualitative Negative (NEG) Valproic Acid (Depakene) Level mcg/mL (50-100) Valproic Acid Last Dose Date Unk Valproic Acid Last Dose Time Unk Ethyl Alcohol Level < 10 mg/dL (0-10) Urine Collection Type U cath Urine Color Yellow Urine Clarity Clear Urine pH 6.0 (<5.0-8.0) Urine Specific [place] 1.025 (1.000-1.030) Urine Protein 30 mg/dL (NEG-TRACE) Urine Glucose (UA) Negative mg/dL (NEG) Urine Ketones (Stick) Negative mg/dL (NEG) Urine Blood Negative (NEG) Urine Nitrite Negative (NEG) Urine Bilirubin Negative (NEG) Urine Urobilinogen Dipstick 1.0 mg/dL (0.2 mg/dL) Urine Leukocyte Esterase Negative (NEG) Urine RBC 0 /HPF (0-2) Urine WBC Rare /HPF (0-4) Urine Squamous Epithelial Cells Few /LPF Urine Amorphous Sediment Present /HPF Urine Bacteria 0 /HPF (0-FEW) Urine Mucus Mod /LPF Urine Opiates Screen Neg (NEG) Urine Methadone Screen Neg (NEG) Urine Barbiturates Neg (NEG) Urine Phencyclidine Screen Neg (NEG) Urine Amphetamine/Methamphetamine Pos (NEG) Urine Benzodiazepines Screen Neg (NEG) Urine Cocaine Screen Neg (NEG) Urine Cannabinoids Screen Neg (NEG) Urine Ethyl Alcohol Neg (NEG) Phosphorus Level 3.6 mg/dL (2.6-4.7) Glucose (Fingerstick) 91 mg/dL (70-99) Laboratory Tests Test 10/03/21 02:45 10/03/21 03:02 White Blood Count 9.2 x10^3/uL (4.0-11.0) Red Blood Count 4.40 x10^6/uL (3.50-5.40) Hemoglobin 12.4 g/dL (12.0-15.5) Hematocrit 38.4 % (36.0-47.0) Mean Corpuscular Volume 87 fL (79-100) Mean Corpuscular Hemoglobin 28 pg (25-35) Mean Corpuscular Hemoglobin Concent 32 g/dL (31-37) Red Cell Distribution Width 13.8 % (11.5-14.5) Platelet Count 273 x10^3/uL (140-400) Neutrophils (%) (Auto) 76 % (31-73) Lymphocytes (%) (Auto) 16 % (24-48) Monocytes (%) (Auto) 8 % (0-9) Eosinophils (%) (Auto) 0 % (0-3) Basophils (%) (Auto) 1 % (0-3) Neutrophils # (Auto) 7.0 x10^3/uL (1.8-7.7) Lymphocytes # (Auto) 1.4 x10^3/uL (1.0-4.8) Monocytes # (Auto) 0.7 x10^3/uL (0.0-1.1) Eosinophils # (Auto) 0.0 x10^3/uL (0.0-0.7) Basophils # (Auto) 0.1 x10^3/uL (0.0-0.2) Sodium Level 140 mmol/L (136-145) Potassium Level 3.6 mmol/L (3.5-5.1) Chloride Level 105 mmol/L (98-107) Carbon Dioxide Level 26 mmol/L (21-32) Anion Gap 9 (6-14) Blood Urea Nitrogen 11 mg/dL (7-20) Creatinine 0.6 mg/dL (0.6-1.0) Estimated GFR (Cockcroft-Gault) 108.6 Glucose Level 87 mg/dL (70-99) Calcium Level 8.1 mg/dL (8.5-10.1) Phosphorus Level 3.6 mg/dL (2.6-4.7) Magnesium Level 2.2 mg/dL (1.8-2.4) Glucose (Fingerstick) 91 mg/dL (70-99) Microbiology 10/02/21 Blood Culture - Preliminary, Resulted NO GROWTH AFTER 1 DAY Medications Current Medications Lorazepam (Ativan Inj) 2 mg STK-MED ONCE .ROUTE ; Start 10/02/21 at 00:36; Stop 10/02/21 at 00:37; Status DC Lorazepam (Ativan Inj) 1 mg 1X ONCE IM Last administered on 10/02/21at 00:45; Start 10/02/21 at 00:45; Stop 10/02/21 at 00:46; Status DC Sodium Chloride 1,000 ml @ 1,000 mls/hr 1X ONCE IV Last administered on 10/02/21at 02:36; Start 10/02/21 at 00:45; Stop 10/02/21 at 01:44; Status DC Levetiracetam 1000 mg/Dextrose 110 ml @ 440 mls/hr 1X ONCE IV Last administered on 10/02/21at 02:37; Start 10/02/21 at 00:45; Stop 10/02/21 at 00:59; Status DC Lorazepam (Ativan Inj) 1 mg 1X ONCE IM Last administered on 10/02/21at 00:45; Start 10/02/21 at 01:45; Stop 10/02/21 at 01:46; Status DC Dextrose/Sodium Chloride 1,000 ml @ 100 mls/hr Q10H IV Last administered on 10/02/21at 04:24; Start 10/02/21 at 04:15 Lorazepam (Ativan Inj) 1 mg 1X PRN IVP seizure activity; Start 10/02/21 at 04:15 Lorazepam (Ativan Inj) 1 mg 1X ONCE IVP Last administered on 10/02/21at 06:34; Start 10/02/21 at 06:30; Stop 10/02/21 at 06:33; Status DC Levetiracetam 500 mg/Dextrose 105 ml @ 420 mls/hr Q12HR IV Last administered on 10/03/21at 09:55; Start 10/02/21 at 09:00 Sennosides (Senna) 17.2 mg PRN BID PRN PO CONSTIPATION; Start 10/02/21 at 08:30 Docusate Sodium (Colace) 100 mg PRN DAILY PRN PO HARD STOOLS; Start 10/02/21 at 08:30 Ondansetron HCl (Zofran) 4 mg PRN Q6HRS PRN IVP NAUSEA/VOMITING; Start 10/02/21 at 08:30 Dextrose (Dextrose 50%-Water Syringe) 12.5 gm PRN Q15MIN PRN IV SEE COMMENTS; Start 10/02/21 at 08:30 Sodium Chloride 1,000 ml @ 100 mls/hr Q10H IV Last administered on 10/02/21at 19:00; Start 10/02/21 at 09:00 Acetaminophen (Tylenol) 650 mg PRN Q4HRS PRN PO TEMP OVER 100.4F OR MILD PAIN; Start 10/02/21 at 08:30 Lorazepam (Ativan) 0.5 mg PRN Q6HRS PRN PO ANXIETY / AGITATION; Start 10/02/21 at 08:30 Lorazepam (Ativan Inj) 0.25 mg PRN Q4HRS PRN IV ANXIETY / AGITATION Last administered on 10/02/21at 10:27; Start 10/02/21 at 08:30 Prochlorperazine Edisylate (Compazine) 10 mg PRN Q6HRS PRN IV NAUSEA/VOMITING; Start 10/02/21 at 08:30 Zolpidem Tartrate (Ambien) 2.5 mg PRN QHS PRN PO INSOMNIA; Start 10/02/21 at 08:30 Vitals/I & O Vital Sign - Last 24 Hours 10/02/21 10/02/21 10/02/21 10/02/21 10:26 15:25 20:00 23:40 Temp 99.3 99.3 Pulse 94 94 86 Resp 22 19 16 B/P (MAP) 128/60 (82) 138/71 (93) 134/78 (96) Pulse Ox 99 96 O2 Delivery Room Air Room Air Room Air Room Air 10/03/21 10/03/21 03:37 07:00 Temp 98.9 98.4 98.9 98.4 Pulse 89 76 Resp 16 17 B/P (MAP) 120/71 (87) 133/77 (95) Pulse Ox 96 99 O2 Delivery Room Air Room Air Justicifation of Admission Dx: Justifications for Admission: Justification of Admission Dx: N/A RAMANA STEIN MD Oct 03, 2021 10:26
[2021-10-03 11:00] VITALS: BP 130/85
--- NOTE | 2021-10-03 12:43 | NUR ---
SW following. Discussed with RN, pt from home with , room air, full liquid diet. PT/OT ordered. Neurology following. PAT consult for positive meth. RN advised no other SW needs at this time. SW will continue to follow.
--- NOTE | 2021-10-03 12:57 | PDOC ---
[facility] [facility] PROGRESS NOTE Date of Service DOS: DATE: 10/03/21 TIME: 12:54 Chief Complaint Chief Complaint Seizures, methamphetamine use depression hx of psychogenic nonepileptic seizures Old right basal ganglia infarct, prior CVA History of posttraumatic stress disorder, borderline personality disorder, major depressive disorder, anxiety History of Present Illness History of Present Illness start paxil for depression, she has beeen of psych meds, PAT team has seen, made recs, outpatient anxiety/depression f/u she is sore, in pain, has upset stomach, does not want to eat, no po intake today, given IV Fluid Vitals/I&O Vitals/I&O: Vital Signs Date Time Temp Pulse Resp B/P (MAP) Pulse Ox O2 Delivery O2 Flow Rate FiO2 10/03/21 07:00 98.4 76 17 133/77 (95) 99 Room Air 98.4 Physical Exam Physical Exam: flat affect, tired, withdrawn General: Alert, Oriented X3, Cooperative Heart: Regular rate Lungs: Wheezing Abdomen: Normal bowel sounds, Soft Skin: No rashes, No breakdown Labs Labs: Laboratory Tests Test 10/03/21 02:45 10/03/21 03:02 White Blood Count 9.2 x10^3/uL (4.0-11.0) Red Blood Count 4.40 x10^6/uL (3.50-5.40) Hemoglobin 12.4 g/dL (12.0-15.5) Hematocrit 38.4 % (36.0-47.0) Mean Corpuscular Volume 87 fL (79-100) Mean Corpuscular Hemoglobin 28 pg (25-35) Mean Corpuscular Hemoglobin Concent 32 g/dL (31-37) Red Cell Distribution Width 13.8 % (11.5-14.5) Platelet Count 273 x10^3/uL (140-400) Neutrophils (%) (Auto) 76 % (31-73) Lymphocytes (%) (Auto) 16 % (24-48) Monocytes (%) (Auto) 8 % (0-9) Eosinophils (%) (Auto) 0 % (0-3) Basophils (%) (Auto) 1 % (0-3) Neutrophils # (Auto) 7.0 x10^3/uL (1.8-7.7) Lymphocytes # (Auto) 1.4 x10^3/uL (1.0-4.8) Monocytes # (Auto) 0.7 x10^3/uL (0.0-1.1) Eosinophils # (Auto) 0.0 x10^3/uL (0.0-0.7) Basophils # (Auto) 0.1 x10^3/uL (0.0-0.2) Sodium Level 140 mmol/L (136-145) Potassium Level 3.6 mmol/L (3.5-5.1) Chloride Level 105 mmol/L (98-107) Carbon Dioxide Level 26 mmol/L (21-32) Anion Gap 9 (6-14) Blood Urea Nitrogen 11 mg/dL (7-20) Creatinine 0.6 mg/dL (0.6-1.0) Estimated GFR (Cockcroft-Gault) 108.6 Glucose Level 87 mg/dL (70-99) Calcium Level 8.1 mg/dL (8.5-10.1) Phosphorus Level 3.6 mg/dL (2.6-4.7) Magnesium Level 2.2 mg/dL (1.8-2.4) Glucose (Fingerstick) 91 mg/dL (70-99) Review of Systems Review of Systems: sore, nauseated, weak Assessment and Plan Assessmemt and Plan Problems Medical Problems: (1) Postictal state Status: Acute Comment Review of Relevant I have reviewed the following items kesha (where applicable) has been applied. Justifications for Admission Other Justification Status epilepticus and altered mental status MIREYA NAVARRO MD Oct 03, 2021 12:57
[2021-10-03 15:00] VITALS: BP 122/67
[2021-10-03 16:32] LABS: BILIRUBIN,URINE NEGATIVE (NEG); CLARITY,URINE CLEAR; COLOR,URINE YELLOW; NITRITE,URINE NEGATIVE (NEG); PROTEIN,URINE NEGATIVE (NEG-TRACE)
[2021-10-03 16:42] LABS: BACTERIA,URINE FEW /HPF (0-FEW); RBC,URINE OCC /HPF (0-2); WBC,URINE OCC /HPF (0-4)
[2021-10-03 19:00] VITALS: BP 131/77
[2021-10-03 23:27] VITALS: BP 132/82
[2021-10-04] MEDS: IV NORMAL SALINE 1000ML BAG 1,000 ML IV SCH ×2 (02:00→08:52)
[2021-10-04 03:00] VITALS: BP 144/83
[2021-10-04 04:42] LABS: BASO # 0.1 x10^3/uL (0.0-0.2); BASO % 1 % (0-3); EOS % 1 % (0-3); HEMOGLOBIN 12.6 g/dL (12.0-15.5); LYMPH # 1.4 x10^3/uL (1.0-4.8); LYMPH % 20 % (24-48); MEAN CORPUSCULAR HEMOGLOBIN 29 pg (25-35); MEAN CORPUSCULAR HGB CONC 33 g/dL (31-37); MEAN CORPUSCULAR VOLUME 87 fL (79-100); MONO # 0.8 x10^3/uL (0.0-1.1); MONO % 12 % (0-9); NEUT # 4.7 x10^3/uL (1.8-7.7); NEUT % 67 % (31-73); PLATELET COUNT 261 x10^3/uL (140-400); RED BLOOD COUNT 4.37 x10^6/uL (3.50-5.40); RED CELL DISTRIBUTION WIDTH 14.1 % (11.5-14.5); WHITE BLOOD COUNT 7.1 x10^3/uL (4.0-11.0)
[2021-10-04 05:05] LABS: CALCIUM 8.1 mg/dL (8.5-10.1); CREATININE 0.6 mg/dL (0.6-1.0); GFR 108.6; POTASSIUM 3.7 mmol/L (3.5-5.1)
[2021-10-04 07:00] VITALS: BP 124/67
[2021-10-04] MEDS: levETIRAcetam 500 MG in IV DEXTROSE 5% 100ML 100 ML IV SCH (08:51)
--- NOTE | 2021-10-04 09:44 | EKG ---
[facility] [address] [place] [address] Test Date: 2021-10-01 Test Time: 17:50:04 Pat Name: FILIBERTO MALDONADO Department: Room: 524 1 Gender: F Automatic Seamer: : 1975 Requested By: TORIE SANTANA Order Number: [id number] Reading MD: Jonah Johnson Measurements Intervals [place] Rate: 80 P: 42 VA: 134 QRS: -54 QRSD: 146 T: 99 QT: 436 QTc: 507 Interpretive Statements SINUS RHYTHM VENTRICULAR PREMATURE COMPLEX(ES) ATRIAL PREMATURE COMPLEX(ES) ABNORMAL LEFT AXIS DEVIATION LEFT BUNDLE BRANCH BLOCK Electronically Signed On 10-08-2021 16:26:24 CONSULTING NURSE by Jonah Johnson
--- NOTE | 2021-10-04 10:01 | PDOC ---
PROGRESS NOTES Date of Service DATE: 10/04/21 TIME: 09:58 Assessment Problems Medical Problems: (1) Postictal state Status: Acute Seizures, positive methamphetamine in urine drug screen which may have precipitated. She says that she took the methamphetamine on a dare Review of [facility] chart says that she was identified with psychogenic nonepileptic seizures during her hospitalization in March. They stopped lamotrigine and levetiracetam in favor of Depakote, but patient says this was not helping any. Old right basal ganglia infarct History of posttraumatic stress disorder, stroke, methamphetamine abuse, urinary tract infection, borderline personality disorder, major depressive disorder, anxiety She says that she is under a large amount of stress, her mother recently Psychiatric assessment team has seen and recommended outpatient psychiatric therapy She is complaining of left wrist pain Plan I discussed risk, benefits, and alternatives with the patient. I do not think anticonvulsants are going to help. I believe these are most likely psychogenic seizures, or just related to drug use. I told the patient to not use illicit drugs. Outpatient psychiatric treatment She does not need MRI and EEG studies Seizure precautions, using the lorazepam only for seizures lasting more than 3 minutes. Okay to discharge today Follow-up with me as needed, not much for a neurologist offer for psychogenic s eizures but she may want to see me for support anyway I did order a left wrist x-ray Discussed with Dr. Ochoa Subjective Complains of left wrist pain Objective Vital Signs Date Time Temp Pulse Resp B/P (MAP) Pulse Ox O2 Delivery O2 Flow Rate FiO2 10/04/21 07:00 98.2 71 20 124/67 (86) 98 Room Air 98.2 Intake and Output 10/04/21 07:00 Intake Total 1700 ml Output Total 300 ml Balance 1400 ml Intake Oral 600 ml IV Total 1100 ml Output Urine Total 300 ml # Voids 3 # Bowel Movements 1 PHYSICAL EXAM Alert, knows name of hospital, off on date [facility]. EOMI. CN: no focal findings. Muscle tone: normal. Muscle strength: 4/5 DTR: 1+ Plantar reflex: Flexor Gait: not examined in bed. Sensory exam: no abnormal findings. No cerebellar signs elicited. Review of Relevant I have reviewed the following items kesha (where applicable) has been applied. Labs Laboratory Tests Test 10/03/21 02:45 10/03/21 03:02 10/03/21 15:55 10/04/21 04:20 White Blood Count 9.2 x10^3/uL (4.0-11.0) 7.1 x10^3/uL (4.0-11.0) Red Blood Count 4.40 x10^6/uL (3.50-5.40) 4.37 x10^6/uL (3.50-5.40) Hemoglobin 12.4 g/dL (12.0-15.5) 12.6 g/dL (12.0-15.5) Hematocrit 38.4 % (36.0-47.0) 38.0 % (36.0-47.0) Mean Corpuscular Volume 87 fL (79-100) 87 fL (79-100) Mean Corpuscular Hemoglobin 28 pg (25-35) 29 pg (25-35) Mean Corpuscular Hemoglobin Concent 32 g/dL (31-37) 33 g/dL (31-37) Red Cell Distribution Width 13.8 % (11.5-14.5) 14.1 % (11.5-14.5) Platelet Count 273 x10^3/uL (140-400) 261 x10^3/uL (140-400) Neutrophils (%) (Auto) 76 % (31-73) 67 % (31-73) Lymphocytes (%) (Auto) 16 % (24-48) 20 % (24-48) Monocytes (%) (Auto) 8 % (0-9) 12 % (0-9) Eosinophils (%) (Auto) 0 % (0-3) 1 % (0-3) Basophils (%) (Auto) 1 % (0-3) 1 % (0-3) Neutrophils # (Auto) 7.0 x10^3/uL (1.8-7.7) 4.7 x10^3/uL (1.8-7.7) Lymphocytes # (Auto) 1.4 x10^3/uL (1.0-4.8) 1.4 x10^3/uL (1.0-4.8) Monocytes # (Auto) 0.7 x10^3/uL (0.0-1.1) 0.8 x10^3/uL (0.0-1.1) Eosinophils # (Auto) 0.0 x10^3/uL (0.0-0.7) 0.0 x10^3/uL (0.0-0.7) Basophils # (Auto) 0.1 x10^3/uL (0.0-0.2) 0.1 x10^3/uL (0.0-0.2) Sodium Level 140 mmol/L (136-145) 144 mmol/L (136-145) Potassium Level 3.6 mmol/L (3.5-5.1) 3.7 mmol/L (3.5-5.1) Chloride Level 105 mmol/L (98-107) 106 mmol/L (98-107) Carbon Dioxide Level 26 mmol/L (21-32) 26 mmol/L (21-32) Anion Gap 9 (6-14) 12 (6-14) Blood Urea Nitrogen 11 mg/dL (7-20) 12 mg/dL (7-20) Creatinine 0.6 mg/dL (0.6-1.0) 0.6 mg/dL (0.6-1.0) Estimated GFR (Cockcroft-Gault) 108.6 108.6 Glucose Level 87 mg/dL (70-99) 74 mg/dL (70-99) Calcium Level 8.1 mg/dL (8.5-10.1) 8.1 mg/dL (8.5-10.1) Phosphorus Level 3.6 mg/dL (2.6-4.7) Magnesium Level 2.2 mg/dL (1.8-2.4) 2.0 mg/dL (1.8-2.4) Glucose (Fingerstick) 91 mg/dL (70-99) Urine Collection Type Unknown Urine Color Yellow Urine Clarity Clear Urine pH 6.0 (<5.0-8.0) Urine Specific [place] 1.015 (1.000-1.030) Urine Protein Negative mg/dL (NEG-TRACE) Urine Glucose (UA) Negative mg/dL (NEG) Urine Ketones (Stick) 15 mg/dL (NEG) Urine Blood Small (NEG) Urine Nitrite Negative (NEG) Urine Bilirubin Negative (NEG) Urine Urobilinogen Dipstick 1.0 mg/dL (0.2 mg/dL) Urine Leukocyte Esterase Trace (NEG) Urine RBC Occ /HPF (0-2) Urine WBC Occ /HPF (0-4) Urine Squamous Epithelial Cells Few /LPF Urine Bacteria Few /HPF (0-FEW) Urine Mucus Slight /LPF Laboratory Tests Test 10/03/21 15:55 10/04/21 04:20 Urine Collection Type Unknown Urine Color Yellow Urine Clarity Clear Urine pH 6.0 (<5.0-8.0) Urine Specific [place] 1.015 (1.000-1.030) Urine Protein Negative mg/dL (NEG-TRACE) Urine Glucose (UA) Negative mg/dL (NEG) Urine Ketones (Stick) 15 mg/dL (NEG) Urine Blood Small (NEG) Urine Nitrite Negative (NEG) Urine Bilirubin Negative (NEG) Urine Urobilinogen Dipstick 1.0 mg/dL (0.2 mg/dL) Urine Leukocyte Esterase Trace (NEG) Urine RBC Occ /HPF (0-2) Urine WBC Occ /HPF (0-4) Urine Squamous Epithelial Cells Few /LPF Urine Bacteria Few /HPF (0-FEW) Urine Mucus Slight /LPF White Blood Count 7.1 x10^3/uL (4.0-11.0) Red Blood Count 4.37 x10^6/uL (3.50-5.40) Hemoglobin 12.6 g/dL (12.0-15.5) Hematocrit 38.0 % (36.0-47.0) Mean Corpuscular Volume 87 fL (79-100) Mean Corpuscular Hemoglobin 29 pg (25-35) Mean Corpuscular Hemoglobin Concent 33 g/dL (31-37) Red Cell Distribution Width 14.1 % (11.5-14.5) Platelet Count 261 x10^3/uL (140-400) Neutrophils (%) (Auto) 67 % (31-73) Lymphocytes (%) (Auto) 20 % (24-48) Monocytes (%) (Auto) 12 % (0-9) Eosinophils (%) (Auto) 1 % (0-3) Basophils (%) (Auto) 1 % (0-3) Neutrophils # (Auto) 4.7 x10^3/uL (1.8-7.7) Lymphocytes # (Auto) 1.4 x10^3/uL (1.0-4.8) Monocytes # (Auto) 0.8 x10^3/uL (0.0-1.1) Eosinophils # (Auto) 0.0 x10^3/uL (0.0-0.7) Basophils # (Auto) 0.1 x10^3/uL (0.0-0.2) Sodium Level 144 mmol/L (136-145) Potassium Level 3.7 mmol/L (3.5-5.1) Chloride Level 106 mmol/L (98-107) Carbon Dioxide Level 26 mmol/L (21-32) Anion Gap 12 (6-14) Blood Urea Nitrogen 12 mg/dL (7-20) Creatinine 0.6 mg/dL (0.6-1.0) Estimated GFR (Cockcroft-Gault) 108.6 Glucose Level 74 mg/dL (70-99) Calcium Level 8.1 mg/dL (8.5-10.1) Magnesium Level 2.0 mg/dL (1.8-2.4) Microbiology 10/02/21 Blood Culture - Preliminary, Resulted NO GROWTH AFTER 2 DAYS Medications Current Medications Lorazepam (Ativan Inj) 2 mg STK-MED ONCE .ROUTE ; Start 10/02/21 at 00:36; Stop 10/02/21 at 00:37; Status DC Lorazepam (Ativan Inj) 1 mg 1X ONCE IM Last administered on 10/02/21at 00:45; Start 10/02/21 at 00:45; Stop 10/02/21 at 00:46; Status DC Sodium Chloride 1,000 ml @ 1,000 mls/hr 1X ONCE IV Last administered on 10/02/21at 02:36; Start 10/02/21 at 00:45; Stop 10/02/21 at 01:44; Status DC Levetiracetam 1000 mg/Dextrose 110 ml @ 440 mls/hr 1X ONCE IV Last administered on 10/02/21at 02:37; Start 10/02/21 at 00:45; Stop 10/02/21 at 00:59; Status DC Lorazepam (Ativan Inj) 1 mg 1X ONCE IM Last administered on 10/02/21at 00:45; Start 10/02/21 at 01:45; Stop 10/02/21 at 01:46; Status DC Dextrose/Sodium Chloride 1,000 ml @ 100 mls/hr Q10H IV Last administered on 10/02/21at 04:24; Start 10/02/21 at 04:15; Stop 10/03/21 at 12:32; Status DC Lorazepam (Ativan Inj) 1 mg 1X PRN IVP seizure activity; Start 10/02/21 at 04:15 Lorazepam (Ativan Inj) 1 mg 1X ONCE IVP Last administered on 10/02/21at 06:34; Start 10/02/21 at 06:30; Stop 10/02/21 at 06:33; Status DC Levetiracetam 500 mg/Dextrose 105 ml @ 420 mls/hr Q12HR IV Last administered on 10/04/21at 08:51; Start 10/02/21 at 09:00 Sennosides (Senna) 17.2 mg PRN BID PRN PO CONSTIPATION; Start 10/02/21 at 08:30 Docusate Sodium (Colace) 100 mg PRN DAILY PRN PO HARD STOOLS; Start 10/02/21 at 08:30 Ondansetron HCl (Zofran) 4 mg PRN Q6HRS PRN IVP NAUSEA/VOMITING, 1st choice; Start 10/02/21 at 08:30 Dextrose (Dextrose 50%-Water Syringe) 12.5 gm PRN Q15MIN PRN IV SEE COMMENTS; Start 10/02/21 at 08:30 Sodium Chloride 1,000 ml @ 100 mls/hr Q10H IV Last administered on 10/04/21at 02:00; Start 10/02/21 at 09:00 Acetaminophen (Tylenol) 650 mg PRN Q4HRS PRN PO TEMP OVER 100.4F OR MILD PAIN; Start 10/02/21 at 08:30 Lorazepam (Ativan) 0.5 mg PRN Q6HRS PRN PO ANXIETY / AGITATION; Start 10/02/21 at 08:30 Lorazepam (Ativan Inj) 0.25 mg PRN Q4HRS PRN IV ANXIETY / AGITATION Last administered on 10/02/21at 10:27; Start 10/02/21 at 08:30 Prochlorperazine Edisylate (Compazine) 10 mg PRN Q6HRS PRN IV NAUSEA/VOMITING, 2nd choice; Start 10/02/21 at 08:30 Zolpidem Tartrate (Ambien) 2.5 mg PRN QHS PRN PO INSOMNIA; Start 10/02/21 at 08:30 Vitals/I & O Vital Sign - Last 24 Hours 10/03/21 10/03/21 10/03/21 10/03/21 11:00 15:00 19:00 20:00 Temp 98.5 98.6 98.3 98.5 98.6 98.3 Pulse 82 79 70 Resp 18 18 20 B/P (MAP) 130/85 (100) 122/67 (85) 131/77 (95) Pulse Ox 100 100 98 O2 Delivery Room Air Room Air Room Air Room Air 10/03/21 10/04/21 10/04/21 23:27 03:00 07:00 Temp 98.8 98.2 98.2 98.8 98.2 98.2 Pulse 63 72 71 Resp 20 20 20 B/P (MAP) 132/82 (99) 144/83 (103) 124/67 (86) Pulse Ox 97 99 98 O2 Delivery Room Air Room Air Room Air Intake and Output 10/03/21 10/03/21 10/04/21 15:00 23:00 07:00 Intake Total 300 ml 1400 ml Output Total 300 ml Balance 0 ml 1400 ml Justicifation of Admission Dx: Justifications for Admission: Justification of Admission Dx: N/A RAMANA STEIN MD Oct 04, 2021 10:01
[2021-10-04 11:00] VITALS: BP 116/66
--- NOTE | 2021-10-04 13:14 | RAD ---
EXAM: Left wrist, 3 views. HISTORY: Fall. Pain. COMPARISON: None. FINDINGS: 3 views of the left wrist are obtained. There is no fracture, dislocation or subluxation. IMPRESSION: No acute osseous finding. Electronically signed by: Keya Ryan MD (10/04/2021 1:12 PM) [id number]
--- NOTE | 2021-10-04 13:14 | NUR ---
SW following. Discussed with RN, pt cleared by PAT - resources provided. Discharge order for home with self care.
--- NOTE | 2021-10-04 13:17 | PDOC3 ---
Discharge Summary Visit Information Date of Admission: Oct 02, 2021 Date of Discharge: Oct 04, 2021 Final Diagnosis Seizures, provoked positive methamphetamine in urine drug screen hx psychogenic nonepileptic seizures at , They stopped lamotrigine and levetiracetam in favor of Depakote, but patient says this was not helping any. Old right basal ganglia infarct History PTSD, , methamphetamine abuse, urinary tract infection, borderline personality disorder, major depressive disorder, anxiety Problems Medical Problems: (1) Postictal state Status: Acute Brief Hospital Course Allergies Allergies Coded Allergies Type Severity Reaction Last Updated Verified Unable to Assess 10/02/21 No Vital Signs Vital Signs Date Time Temp Pulse Resp B/P (MAP) Pulse Ox O2 Delivery O2 Flow Rate FiO2 10/04/21 11:00 98.2 64 20 116/66 (83) 99 Room Air 98.2 Lab Results Laboratory Tests Test 10/03/21 02:45 10/03/21 03:02 10/03/21 15:55 10/04/21 04:20 White Blood Count 9.2 x10^3/uL (4.0-11.0) 7.1 x10^3/uL (4.0-11.0) Red Blood Count 4.40 x10^6/uL (3.50-5.40) 4.37 x10^6/uL (3.50-5.40) Hemoglobin 12.4 g/dL (12.0-15.5) 12.6 g/dL (12.0-15.5) Hematocrit 38.4 % (36.0-47.0) 38.0 % (36.0-47.0) Mean Corpuscular Volume 87 fL (79-100) 87 fL (79-100) Mean Corpuscular Hemoglobin 28 pg (25-35) 29 pg (25-35) Mean Corpuscular Hemoglobin Concent 32 g/dL (31-37) 33 g/dL (31-37) Red Cell Distribution Width 13.8 % (11.5-14.5) 14.1 % (11.5-14.5) Platelet Count 273 x10^3/uL (140-400) 261 x10^3/uL (140-400) Neutrophils (%) (Auto) 76 % (31-73) 67 % (31-73) Lymphocytes (%) (Auto) 16 % (24-48) 20 % (24-48) Monocytes (%) (Auto) 8 % (0-9) 12 % (0-9) Eosinophils (%) (Auto) 0 % (0-3) 1 % (0-3) Basophils (%) (Auto) 1 % (0-3) 1 % (0-3) Neutrophils # (Auto) 7.0 x10^3/uL (1.8-7.7) 4.7 x10^3/uL (1.8-7.7) Lymphocytes # (Auto) 1.4 x10^3/uL (1.0-4.8) 1.4 x10^3/uL (1.0-4.8) Monocytes # (Auto) 0.7 x10^3/uL (0.0-1.1) 0.8 x10^3/uL (0.0-1.1) Eosinophils # (Auto) 0.0 x10^3/uL (0.0-0.7) 0.0 x10^3/uL (0.0-0.7) Basophils # (Auto) 0.1 x10^3/uL (0.0-0.2) 0.1 x10^3/uL (0.0-0.2) Sodium Level 140 mmol/L (136-145) 144 mmol/L (136-145) Potassium Level 3.6 mmol/L (3.5-5.1) 3.7 mmol/L (3.5-5.1) Chloride Level 105 mmol/L (98-107) 106 mmol/L (98-107) Carbon Dioxide Level 26 mmol/L (21-32) 26 mmol/L (21-32) Anion Gap 9 (6-14) 12 (6-14) Blood Urea Nitrogen 11 mg/dL (7-20) 12 mg/dL (7-20) Creatinine 0.6 mg/dL (0.6-1.0) 0.6 mg/dL (0.6-1.0) Estimated GFR (Cockcroft-Gault) 108.6 108.6 Glucose Level 87 mg/dL (70-99) 74 mg/dL (70-99) Calcium Level 8.1 mg/dL (8.5-10.1) 8.1 mg/dL (8.5-10.1) Phosphorus Level 3.6 mg/dL (2.6-4.7) Magnesium Level 2.2 mg/dL (1.8-2.4) 2.0 mg/dL (1.8-2.4) Glucose (Fingerstick) 91 mg/dL (70-99) Urine Collection Type Unknown Urine Color Yellow Urine Clarity Clear Urine pH 6.0 (<5.0-8.0) Urine Specific [place] 1.015 (1.000-1.030) Urine Protein Negative mg/dL (NEG-TRACE) Urine Glucose (UA) Negative mg/dL (NEG) Urine Ketones (Stick) 15 mg/dL (NEG) Urine Blood Small (NEG) Urine Nitrite Negative (NEG) Urine Bilirubin Negative (NEG) Urine Urobilinogen Dipstick 1.0 mg/dL (0.2 mg/dL) Urine Leukocyte Esterase Trace (NEG) Urine RBC Occ /HPF (0-2) Urine WBC Occ /HPF (0-4) Urine Squamous Epithelial Cells Few /LPF Urine Bacteria Few /HPF (0-FEW) Urine Mucus Slight /LPF Laboratory Tests Test 10/03/21 15:55 10/04/21 04:20 Urine Collection Type Unknown Urine Color Yellow Urine Clarity Clear Urine pH 6.0 (<5.0-8.0) Urine Specific [place] 1.015 (1.000-1.030) Urine Protein Negative mg/dL (NEG-TRACE) Urine Glucose (UA) Negative mg/dL (NEG) Urine Ketones (Stick) 15 mg/dL (NEG) Urine Blood Small (NEG) Urine Nitrite Negative (NEG) Urine Bilirubin Negative (NEG) Urine Urobilinogen Dipstick 1.0 mg/dL (0.2 mg/dL) Urine Leukocyte Esterase Trace (NEG) Urine RBC Occ /HPF (0-2) Urine WBC Occ /HPF (0-4) Urine Squamous Epithelial Cells Few /LPF Urine Bacteria Few /HPF (0-FEW) Urine Mucus Slight /LPF White Blood Count 7.1 x10^3/uL (4.0-11.0) Red Blood Count 4.37 x10^6/uL (3.50-5.40) Hemoglobin 12.6 g/dL (12.0-15.5) Hematocrit 38.0 % (36.0-47.0) Mean Corpuscular Volume 87 fL (79-100) Mean Corpuscular Hemoglobin 29 pg (25-35) Mean Corpuscular Hemoglobin Concent 33 g/dL (31-37) Red Cell Distribution Width 14.1 % (11.5-14.5) Platelet Count 261 x10^3/uL (140-400) Neutrophils (%) (Auto) 67 % (31-73) Lymphocytes (%) (Auto) 20 % (24-48) Monocytes (%) (Auto) 12 % (0-9) Eosinophils (%) (Auto) 1 % (0-3) Basophils (%) (Auto) 1 % (0-3) Neutrophils # (Auto) 4.7 x10^3/uL (1.8-7.7) Lymphocytes # (Auto) 1.4 x10^3/uL (1.0-4.8) Monocytes # (Auto) 0.8 x10^3/uL (0.0-1.1) Eosinophils # (Auto) 0.0 x10^3/uL (0.0-0.7) Basophils # (Auto) 0.1 x10^3/uL (0.0-0.2) Sodium Level 144 mmol/L (136-145) Potassium Level 3.7 mmol/L (3.5-5.1) Chloride Level 106 mmol/L (98-107) Carbon Dioxide Level 26 mmol/L (21-32) Anion Gap 12 (6-14) Blood Urea Nitrogen 12 mg/dL (7-20) Creatinine 0.6 mg/dL (0.6-1.0) Estimated GFR (Cockcroft-Gault) 108.6 Glucose Level 74 mg/dL (70-99) Calcium Level 8.1 mg/dL (8.5-10.1) Magnesium Level 2.0 mg/dL (1.8-2.4) Brief Hospital Course Ms. Bernardo is a 46 old admit with seizure, post ictal, Hx psychogenic seizure dx at . Dr. Lomas, does not think anticonvulsants are going to help.Most likely psychogenic seizures, or related to drug use maintain sobriety,. Seizure precautions, Discharge Information Follow Up: Weeks Disposition/Orders: D/C to Home No Active Prescriptions or Reported Meds Patient Instructions Patient Instructions face to face 31 mintues today total time wrist xray results pending, injured 2 weeks ago Justicifation of Admission Dx: Justifications for Admission: Justification of Admission Dx: N/A MIREYA NAVARRO MD Oct 04, 2021 13:17
[2021-10-04 15:00] VITALS: BP 134/87
--- NOTE | 2021-10-04 17:00 | NUR ---
Patient escorted to main entrance with cab pass ambulating with spouse by BRAYDEN Mills, education given, and IV discontinued.
--- NOTE | 2021-10-04 19:18 | EKG ---
[facility] [address] [place] [address] Test Date: 2021-10-02 Test Time: 02:52:44 Pat Name: FILIBERTO MALDONADO Department: Room: 524 1 Gender: F Chef Head: : 1975 Requested By: TORIE SANTANA Order Number: [id number] Reading MD: Jonah Johnson Measurements Intervals [place] Rate: 81 P: 66 [place]: 144 QRS: 45 QRSD: 90 T: 63 QT: 394 QTc: 458 Interpretive Statements SINUS RHYTHM LEFT ATRIAL ABNORMALITY Electronically Signed On 10-08-2021 16:25:40 BARREL STRAIGHTENER by Jonah Johnson
== END 2021-10-04 17:00 | disposition home or self-care (01) ==
LOC: ER 00:34 → ED HOLD 02:30 → 5 NORTH 03:48
PROVIDERS: ADMIT Internal Medicine; ATTEND Internal Medicine
DX: R56.1 Post traumatic seizures (principal); G93.41 Metabolic encephalopathy; F15.90 Other stimulant use, unspecified, uncomplicated; F32.A Depression, unspecified; F43.10 Post-traumatic stress disorder, unspecified; F60.3 Borderline personality disorder; Z79.899 Other long term (current) drug therapy; Z86.73 Personal history of transient ischemic attack (TIA), and cerebral infarction without residual deficits; Z98.890 Other specified postprocedural states
CPT/HCPCS: 36415; 70450; 73120; 80048; 80053; 80164; 80307; 81001; 82550; 82962; 83605; 83735; 84100; 84443; 84703; 85007; 85025; 87040; 87086; 93005; 96361; 96365; 96366; 96372; 96375; 96376; 97110; 97116; 97162; 97166; 97530; 99285; G0378; G0480; J1953; J2060; J7030; J7042; J7060; 96374; G0379

== ENCOUNTER 2022-01-17 23:11 | Emergency (ER) | payer SELFPAY ==
[~2022-01-17] VITALS: Ht 165.1 cm; Wt 69.9 kg
[~2022-01-17 23:11] MED LIST: LEVE500T56 PO
--- NOTE | 2022-01-17 23:21 | PHYS DOC ---
Past Medical History Past Medical History: Depression, Seizure Additional Past Medical Histor: Schizo-effective disorder Past Surgical History: Other Additional Past Surgical Histo: UNKNOWN Smoking Status: Never Smoker Alcohol Use: None General Adult EDM: Chief Complaint: SEIZURE HPI: HPI: Patient is a 46 year old female who presents to the ED today complaining of a seizure. Patient has history of seizures, she is on Keppra 1000 mg twice a day. She took her morning dose, she had not taken her evening dose, she states she was talking to her daughter while standing, had a witnessed seizure for 1 to 2 minutes, she states she fell. She is complaining of slight posterior neck pain. She states she recently lost her , mother and father. Denies any suicidal/homicidal ideations she states today she got the 's certificate which upset her. She states she has been drug-free for 1 year. Review of Systems: Review of Systems: Constitutional: Denies fever or chills. [] Eyes: Denies change in visual acuity. [] HENT: Denies nasal congestion or sore throat. [] Respiratory: Denies cough or shortness of breath. [] Cardiovascular: Denies chest pain or edema. [] GI: Denies abdominal pain, nausea, vomiting, bloody stools or diarrhea. [] : Denies dysuria. [] Musculoskeletal: Reports neck pain. Denies back pain or joint pain. [] Integument: Denies rash. [] Neurologic: Reports seizure. Denies headache, focal weakness or sensory changes. [] Psychiatric: Denies depression or anxiety. [] Heart Score: C/O Chest Pain: N/A Risk Factors: Risk Factors: DM, Current or recent (<one month) smoker, HTN, HLP, family history of CAD, obesity. Risk Scores: Score 0 - 3: 2.5% MACE over next 6 weeks - Discharge Home Score 4 - 6: 20.3% MACE over next 6 weeks - Admit for Clinical Observation Score 7 - 10: 72.7% MACE over next 6 weeks - Early Invasive Strategies Allergies: Allergies: Allergies Coded Allergies Type Severity Reaction Last Updated Verified alprazolam Allergy Intermediate 01/03/22 Yes Physical Exam: PE: Constitutional: Well developed, well nourished, no acute distress, non-toxic appearance. [] HENT: Hoarse voice. Normocephalic, bilateral external ears normal, oropharynx moist, no oral exudates, nose normal. [] Eyes: PERRLA, EOMI, conjunctiva normal, no discharge. [] Neck: Normal range of motion, no tenderness, supple, no stridor. [] Cardiovascular:Heart rate regular rhythm, no murmur [] Lungs & Thorax: Bilateral breath sounds clear to auscultation [] Abdomen: Bowel sounds normal, soft, no tenderness, no masses, no pulsatile masses. [] Skin: Warm, dry, no erythema, no rash. [] Back: No tenderness, no CVA tenderness. [] Extremities: No tenderness, no cyanosis, no clubbing, ROM intact, no edema. [] Neurologic: Alert and oriented X 3, normal motor function, normal sensory function, no focal deficits noted. Cranial nerves II through XII intact Psychologic: Affect normal, judgement normal, mood normal. [] EKG: EKG: [] Radiology/Procedures: Radiology/Procedures: []PROCEDURE: CT HEAD AND CERVICAL SPINE WO EXAM: CT HEAD WITHOUT IV CONTRAST CLINICAL HISTORY: Reason: seizure fall / Spl. Instructions: / History: COMPARISON: None. TECHNIQUE: Routine CT of the head without contrast. Soft tissues and bone windows were reviewed. PQRS compliance statement - One or more of the following individualized dose reduction techniques were utilized for this study: 1. Automated exposure control 2. Adjustment of the mA and/or kV according to patient size 3. Use of iterative reconstruction technique FINDINGS: There is no evidence of hemorrhage, mass or extra-axial fluid collection. Matson-white differentiation is maintained with no evidence of edema. There is no mass effect or shift of the intracranial structures. The ventricles, basilar cisterns and cortical sulci are normal in size and configuration for the patients stated age. The cerebellum and brainstem are unremarkable. The calvarium demonstrates no evidence of fracture or focal lesion. There is normal aeration of the visualized paranasal sinuses and mastoid air cells. The visualized portions of the orbits are normal. IMPRESSION: No evidence for acute intracranial process. EXAM: CT CERVICAL SPINE WITHOUT IV CONTRAST CLINICAL HISTORY: Reason: seizure fall / Spl. Instructions: / History: COMPARISON: None available. TECHNIQUE: Helical CT of the cervical spine was performed. Axial, coronal and sagittal reformatted images were also performed. PQRS compliance statement - One or more of the following individualized dose reduction techniques were utilized for this study: 1. Automated exposure control 2. Adjustment of the mA and/or kV according to patient size 3. Use of iterative reconstruction technique FINDINGS: Vertebral body heights are preserved. No acute fracture. No spondylolisthesis. Straightening of the normal cervical lordosis. Mild C5-6, C6-7 disc height loss with small posterior disc osteophyte complex at C5-6 and C6-7 resulting in mild central canal stenosis. IMPRESSION: 1. Multilevel spondylosis as above 2. Negative acute fracture or subluxation. Electronically signed by: Krishna Shaw MD (01/18/2022 12:06 AM) [facility] DICTATED and SIGNED BY: KRISHNA SHAW MD DATE: 01/18/22 0004 PROCEDURE: WRIST 3V LEFT EXAM: 3 views of the left wrist DATE: 01/18/2022 12:23 AM INDICATION: Reason: pain / Spl. Instructions: / History: COMPARISON: No Prior FINDINGS: No acute fracture or dislocation. Joint spaces are preserved without significant degenerative/proliferative change. No significant soft tissue swelling. IMPRESSION: No acute fracture or dislocation. Electronically signed by: Krishna Shaw MD (01/18/2022 12:34 AM) [facility] DICTATED and SIGNED BY: KRISHNA SHAW MD DATE: 01/18/22 0034 Course & Med Decision Making: Course & Med Decision Making Pertinent Labs and Imaging studies reviewed. (See chart for details) This a 46-year-old female patient with history of seizure presenting today complaining of a seizure this evening she is also complaining of posterior neck pain. Patient is on Keppra. Had not taken her evening dose. She states she has been sober from drugs for 1 year, unfortunately I saw her a month ago and she was positive for methamphetamine use Given 3 g of Keppra-directions from Dr. Nair CT of the head and cervical spine are negative for any acute findings She complained about left wrist pain prior to discharge, left wrist x-rays were done and interpreted the radiologist-negative for any acute findings Discharge home. Follow-up with PCP and neurologist in the course of next week Tone Disclaimer: Tone Disclaimer: This electronic medical record was generated, in whole or in part, using a voice recognition dictation system. Departure Departure Impression: Primary Impression: Seizure Additional Impression: Acute cervical sprain Qualified Codes: S13.9XXA - Sprain of joints and ligaments of unspecified parts of neck, initial encounter Disposition: HOME / SELF CARE / HOMELESS Condition: STABLE Referrals: NO PCP (PCP) Patient Instructions: Cervical Sprain, [id number], Seizure, Adult Additional Instructions: You were evaluated in the emergency room after having a seizure, ensure you are taking your medicines. Your CT of the head and cervical spine are negative for any acute findings, your left wrist x-rays are negative. Please follow-up with your primary care doctor as well as neurologist in the next 1 to 2 weeks CHING SEGURA APRN Jan 17, 2022 23:21
[2022-01-17] MEDS ORDERED: LEVETIRACETAM IV ONE (23:30)
[2022-01-17] MEDS ORDERED: levETIRAcetam 1,000mg PREMIX 100 ML IV ONE (23:30)
[2022-01-17] MEDS ORDERED: DEXTROSE 5% IV ONE (23:30)
[2022-01-17 23:36] LABS: AMPHETAMINE/METHAMPHETAMINE NEG (NEG); BARBITURATES NEG (NEG); BENZODIAZEPINES NEG (NEG); CANNABINOIDS NEG (NEG); COCAINE NEG (NEG); METHADONE NEG (NEG); OPIATES NEG (NEG); PHENCYCLIDINE NEG (NEG)
--- NOTE | 2022-01-18 00:08 | RAD ---
EXAM: CT HEAD WITHOUT IV CONTRAST CLINICAL HISTORY: Reason: seizure fall / Spl. Instructions: / History: COMPARISON: None. TECHNIQUE: Routine CT of the head without contrast. Soft tissues and bone windows were reviewed. PQRS compliance statement - One or more of the following individualized dose reduction techniques wer e utilized for this study: 1. Automated exposure control 2. Adjustment of the mA and/or kV according to patient size 3. Use of iterative reconstruction technique FINDINGS: There is no evidence of hemorrhage, mass or extra-axial fluid collection. Matson-white differentiation is maintained with no evidence of edema. There is no mass effect or shift of the intracranial structures. The ventricles, basilar cisterns and cortical sulci are normal in size and configuration for the andrew ents stated age. The cerebellum and brainstem are unremarkable. The calvarium demonstrates no evidence of fracture or focal lesion. There is normal aeration of the visualized paranasal sinuses and mastoid air cells. The visualized portions of the orbits are normal. IMPRESSION: No evidence for acute intracranial process. EXAM: CT CERVICAL SPINE WITHOUT IV CONTRAST CLINICAL HISTORY: Reason: seizure fall / Spl. Instructions: / History: COMPARISON: None available. TECHNIQUE: Helical CT of the cervical spine was performed. Axial, coronal and sagittal reformatted im ages were also performed. PQRS compliance statement - One or more of the following individualized dose reduction techniques wer e utilized for this study: 1. Automated exposure control 2. Adjustment of the mA and/or kV according to patient size 3. Use of iterative reconstruction technique FINDINGS: Vertebral body heights are preserved. No acute fracture. No spondylolisthesis. Straightening of the normal cervical lordosis. Mild C5-6, C6-7 disc height loss with small posterior disc osteophyte complex at C5-6 and C6-7 result ing in mild central canal stenosis. IMPRESSION: 1. Multilevel spondylosis as above 2. Negative acute fracture or subluxation. Electronically signed by: Krishna Shaw MD (01/18/2022 12:06 AM) RINA
--- NOTE | 2022-01-18 00:36 | RAD ---
EXAM: 3 views of the left wrist DATE: 01/18/2022 12:23 AM INDICATION: Reason: pain / Spl. Instructions: / History: COMPARISON: No Prior FINDINGS: No acute fracture or dislocation. Joint spaces are preserved without significant degenerative/prolife rative change. No significant soft tissue swelling. IMPRESSION: No acute fracture or dislocation. Electronically signed by: Krishna Shaw MD (01/18/2022 12:34 AM) [facility]INA
[2022-01-18 00:46] VITALS: BP 109/70
== END 2022-01-18 01:00 | disposition home or self-care (01) ==
LOC: ER 23:11
DX: S13.9XXA Sprain of joints and ligaments of unspecified parts of neck, initial encounter (principal); R56.9 Unspecified convulsions; R51.9 Headache, unspecified; F25.9 Schizoaffective disorder, unspecified; W18.39XA Other fall on same level, initial encounter; Y93.89 Activity, other specified; Y92.89 Other specified places as the place of occurrence of the external cause; Y99.8 Other external cause status
CPT/HCPCS: 70450; 72125; 73120; 80307; 96365; 99285; J1953; J7060